=== PATIENT | male | born 1960 | race Caucasian/White ===

== ENCOUNTER 2017-10-19 21:46 | Emergency (ER) | payer BC ==
[2017-10-19 23:28] LABS: HEMATOCRIT 43.7 % (42.0-54.0); HEMOGLOBIN 15.1 g/dL (13.5-17.5); MCH 29.3 pg (26.0-34.0); MCHC 34.6 g/dL (31.0-37.0); MCV 84.7 fL (80.0-100.0); NEUTROPHILS 82.6 % (40-80); PLATELET COUNT 221 10x3/uL (130-400); RBC 5.16 10x6/uL (4.20-6.10); RDW 12.4 % (11.5-14.5); WBC 15.7 10x3/uL (4.8-10.8)
[2017-10-19 23:37] LABS: APPEARANCE CLEAR (CLEAR); BILIRUBIN NEGATIVE (NEGATIVE); COLOR YELLOW (YELLOW); GLUCOSE NEGATIVE (NEGATIVE); KETONE MODERATE mg/dL (NEGATIVE); NITRITE NEGATIVE (NEGATIVE); PROTEIN TRACE mg/dL (NEGATIVE); SPECIFIC GRAVITY 1.005 (1.005-1.020); UROBILINOGEN NORMAL (NORMAL)
[2017-10-19 23:39] LABS: BACTERIA FEW /hpf (NONE SEEN); EPITHELIAL CELLS 0-5 /hpf (0-5); WHITE CELLS - URINE 0-5 /hpf (0-5)
[2017-10-19 23:48] LABS: ALBUMIN 4.3 g/dL (3.4-5.0); BILIRUBIN - TOTAL 0.6 mg/dL (0.2-1.3); CALCIUM 9.5 mg/dL (8.5-10.1); CARBON DIOXIDE 22.7 mmol/L (21.0-32.0); CREATININE - SERUM 1.5 mg/dL (0.6-1.3); POTASSIUM - SERUM 3.7 mmol/L (3.5-5.1); PROTEIN - SERUM 8.4 g/dL (6.4-8.2)
[2017-12-15] MEDS ORDERED: PROSCAR5 MG PO (08:52)
[2017-12-16 06:17] VITALS: BMI 27.7
== END 2017-10-20 01:47 | disposition home or self-care (01) ==
LOC: D.ER 21:46
PROVIDERS: Family Medicine; Nurse Practitioner Family
DX: N20.1 Calculus of ureter (principal)

== ENCOUNTER → 2017-12-01 11:20 | Outpatient (CLI) | payer BC ==
[~2017-12-01 11:20] MED LIST: FLOMAX0.4 MG PO; HYDROCODON-ACE1 EAC7 PO; LASIX20 MG PO; PROSCAR5 MG PO
[2017-12-16 06:17] VITALS: BMI 27.7
== END | disposition home or self-care (01) ==
LOC: D.LAB 11:20
DX: Z12.5 Encounter for screening for malignant neoplasm of prostate (principal)

== ENCOUNTER 2017-12-16 06:00 | Day surgery (SDC) | payer BC ==
[~2017-12-16] VITALS: Ht 177.8 cm; Wt 87.5 kg
[~2017-12-16 06:00] MED LIST changes: -FLOMAX0.4 MG PO; -HYDROCODON-ACE1 EAC7 PO; -LASIX20 MG PO
[2017-12-16 06:17] VITALS: BP 189/104; Ht 177.8 cm; Wt 87.5 kg
[2017-12-16] MEDS ORDERED: HYDROCODON-ACE1 EAC7 PO (09:33)
[2017-12-16] MEDS ORDERED: LASIX20 MG PO (09:34)
[2017-12-16] MEDS ORDERED: FLOMAX0.4 MG PO (09:34)
== END 2017-12-16 15:50 | disposition home or self-care (01) ==
LOC: D.OPS 06:00 → D.PAN 08:00 → D.OPS 08:00
DX: K40.20 Bilateral inguinal hernia, without obstruction or gangrene, not specified as recurrent (principal); Z01.812 Encounter for preprocedural laboratory examination

== ENCOUNTER → 2018-03-11 11:00 | Outpatient (CLI) | payer BC ==
[2017-12-16 06:17] VITALS: BMI 27.7
[~2018-03-11 11:00] MED LIST changes: +FLOMAX0.4 MG PO; +HYDROCODON-ACE1 EAC7 PO; +IBUPROFEN200 MG PO; +IBUPROFEN800 MG PO; +LASIX20 MG PO; +TYLENOL W/CODEI1 TAB PO
== END | disposition home or self-care (01) ==
LOC: D.US 11:00
DX: N50.812 Left testicular pain (principal)

== ENCOUNTER 2018-03-30 05:30 | Day surgery (SDC) | payer BC ==
[2018-03-29 16:02] LABS: HEMOGLOBIN 14.4 g/dL (13.5-17.5); MCH 29.9 pg (26.0-34.0); MCHC 34.3 g/dL (31.0-37.0); MCV 87.1 fL (80.0-100.0); MEAN PLATELET VOLUME 10.6 fL (7.4-10.4); RBC 4.82 10x6/uL (4.20-6.10); RDW 12.8 % (11.5-14.5); WBC 6.8 10x3/uL (4.8-10.8)
[2018-03-29 16:18] LABS: CALC OSMOLALITY 286 mosm/kg (275-300); CALCIUM 8.3 mg/dL (8.5-10.1); CARBON DIOXIDE 26.1 mmol/L (21.0-32.0); CHLORIDE - SERUM 107 mmol/L (98-107); GLUCOSE 108 mg/dL (74-106); POTASSIUM - SERUM 3.8 mmol/L (3.5-5.1); SODIUM 143 mmol/L (136-145); UREA NITROGEN 15 mg/dL (7-18); eGFR NON AFRICAN AMERICAN 81 mL/min (90-120)
[~2018-03-30] VITALS: Ht 177.8 cm; Wt 84.8 kg
--- NOTE | ~2018-03-30 | OP ---
PATIENT NAME: AURORA CASEY MEDICAL RECORD: [id number] :56 LOCATION:[facility] ADMISSION DATE: SURGEON: MARCEL WINKLER MD DATE OF OPERATION: 03/30/2018 SURGEON: Marcel Winkler MD ANESTHESIA: General anesthesia by Diane Barahona CRNA DIAGNOSIS: Left hydrocele. PROCEDURE: Left hydrocelectomy - Jaboulay procedure. SPECIMENS: Left appendix testis and appendix epididymis. FINDINGS: Left hydrocele. BLOOD LOSS: None. CLINICAL HISTORY: This is a 57-year-old male, who developed left scrotal swelling after bilateral inguinal hernia repairs. Ultrasound of the scrotum reveals that this is a hydrocele. It has grown to a sufficient size that it is bothering him. He wishes to have it removed. There is also a small right hydrocele which is not large enough to warrant drainage. The patient is aware of the risk of surgery including infection and hematoma formation. He is not allergic to any medications. He was given Ancef IV amortization clerk to the OR. DESCRIPTION OF PROCEDURE: The patient was given induction of general anesthesia in supine position. He was then shaved, prepped and draped. In the median rhaphe of the scrotum, a 4 cm long incision was made. We then went through the dartos fascia with Bovie. We could see the tunica vaginalis. Hemostats were placed on either side of the midline of the tunica vaginalis and then Metzenbaum scissors were used to open up the tunica vaginalis and allow drainage of the hydrocele fluid. The Yankauer suction tip was placed into the hydrocele cavity to drain the fluid out. At least 10 mL of fluid was drained out. The incision was then lengthened using Metzenbaum scissors. The testicle was extruded through the incision out of the hemiscrotum. The patient has visible appendix epididymis and appendix testis. They are normal, but they can twist on their blood supply and create pain. Therefore, these were excised at their bases and sent to pathology for identification. The Jaboulay procedure consists of reapproximating the tunica vaginalis posterior to the epididymis and cord. The reapproximation of the 2 flaps on either side was performed using simple interrupted 3-0 Vicryl. The testicle was then placed back into the left hemiscrotum. I made sure that the lateral sulcus was indeed facing laterally. The dartos fascia was then reapproximated using simple interrupted 3-0 Vicryl. The skin was then reapproximated using simple interrupted 4-0 Vicryl. The incision line was infiltrated with 0.25% Marcaine containing epinephrine. Fluffs and mesh panties were given to the patient for a dressing. The patient will be going home today. I will see him in followup next week to check on his wound healing. TRANSINT:[id number] Voice Confirmation ID: [id number] DOCUMENT ID: [id number] OPERATIVE REPORT [id number] AURORA CASEY ROBERT S MD at 0953 CC: [id number] DICTATION DATE: 03/30/18818 OIL RECOVERY UNIT OPERATOR: 03/30/1835 [facility] [address] [place] [address]
[~2018-03-30 05:30] MED LIST changes: -IBUPROFEN200 MG PO; -TYLENOL W/CODEI1 TAB PO
[2018-03-30] MEDS ORDERED: IBUPROFEN200 MG PO (06:08)
[2018-03-30 06:26] VITALS: BP 182/104; Ht 177.8 cm; Wt 84.8 kg
[2018-03-30] MEDS ORDERED: TYLENOL W/CODEI1 TAB PO (08:11)
== END 2018-03-30 12:26 | disposition home or self-care (01) ==
LOC: D.OPS 05:30 → D.PAN 07:30 → D.OPS 12:26
PROVIDERS: Anesthesiology
DX: N43.3 Hydrocele, unspecified (principal); Q55.29 Other congenital malformations of testis and scrotum; Q55.4 Other congenital malformations of vas deferens, epididymis, seminal vesicles and prostate; Z01.812 Encounter for preprocedural laboratory examination

== ENCOUNTER → 2018-05-07 13:31 | Outpatient (CLI) | payer BC ==
[2018-03-30 06:26] VITALS: BMI 26.8
[~2018-05-07 13:31] MED LIST changes: +IBUPROFEN200 MG PO; +TYLENOL W/CODEI1 TAB PO
== END | disposition home or self-care (01) ==
LOC: D.RAD 13:31
DX: N20.0 Calculus of kidney (principal)

== ENCOUNTER → 2018-05-12 14:30 | Outpatient (CLI) | payer BC ==
[2018-03-30 06:26] VITALS: BMI 26.8
== END | disposition home or self-care (01) ==
LOC: D.CT 14:30
DX: R10.9 Unspecified abdominal pain (principal)

== ENCOUNTER 2018-09-09 10:01 | Day surgery (SDC) | payer BC ==
[~2018-09-09] VITALS: Ht 177.8 cm; Wt 83.9 kg
[~2018-09-09 10:01] MED LIST changes: +LISINOPRIL10 MG PO
[2018-09-09 14:45] VITALS: BP 146/85; Ht 177.8 cm; Wt 83.9 kg
--- NOTE | 2018-09-09 18:35 | NUR ---
PATIENT COMPLAINS OF URINARY FREQUENCY, KEEPS GOING INTO BATHROOM, PATIENT STATES IS PASSING CLOTS FOLLOWED BY PINK AND RED URINE AND REPORTS PASSING LARGE AMOUNTS OF URINE. DISCHARGE INSTRUCTIONS REVIEWED WITH PATIENT, LEFT HAND PIV DC'D WITH TIP INTACT
--- NOTE | 2018-09-10 09:02 | OP ---
PATIENT NAME: AURORA CASEY MEDICAL RECORD: [id number] :56 LOCATION:[facility] ADMISSION DATE: SURGEON: FRANCISCO WINKLER MD DATE OF OPERATION: 09/09/2018 SURGEON: Francisco Winkler MD ANESTHESIA: TIVA by Reji [place] CRNA DIAGNOSIS: Obstructive benign prostatic hyperplasia, not responsive to finasteride since 10/30/2017. CLINICAL HISTORY: The patient is unable to tolerate tamsulosin. He is not in urinary retention. PSA was 1.64 on 11/29/2017. DIOGENES gives a 40 mL prostate size, which is benign feeling. IPSS is 19 and quality of life score is 4 with the patient on finasteride. PROCEDURE: UroLift times 4 implants. FINDINGS: Lateral lobe enlargement primarily near the bladder neck. No median lobe. Single ureteral orifices bilaterally without any bladder tumors. ESTIMATED BLOOD LOSS: None. CLINICAL HISTORY: This is a 57-year-old male, who has had significant voiding symptoms for some time. He had a CT scan of the abdomen and pelvis on 05/12/2018, which showed an enlarged prostate. He was started on finasteride in October 2017, which somewhat improved his flow, but he still has nocturia every 4 hours and daytime frequency every 2 to 3 hours. His IPSS score with finasteride on board is 19 and his quality of life score is 4. He tried Flomax earlier and he could not tolerate it. He wishes to have the UroLift procedure done. He is not allergic to any medications. He was given Ancef investor relations director to the OR. DESCRIPTION OF PROCEDURE: The patient was given IV sedation. He was then placed into dorsal lithotomy position. The UroLift scope was introduced, with the findings as outlined above. A 1.5 cm distal to the bladder neck in the anterior lateral urethra, we placed 1 implant on each side. At the verumontanum, we also placed one implant on each side in the anterior lateral urethra. He then had a good open urethral channel all the way through. The bladder was emptied through the cystoscope sheath and then the scope was removed entirely. I will see the patient in followup in 1 month's time. TRANSINT:[id number] Voice Confirmation ID: [id number] DOCUMENT ID: [id number] FRANCISCO WINKLER MD at 0902 CC: [id number] DICTATION DATE: 09/09/18 1604 FINAL FINISHER FORGING DIES: 09/09/182032 [facility] 09/09/18 [facility] [address] [place] [id number]
== END 2018-09-09 18:45 | disposition home or self-care (01) ==
LOC: D.OPS 10:01 → D.PAN 13:30 → D.OPS 13:30 → D.PAN 16:00 → D.OPS 16:00
PROVIDERS: ATTEND Urology
DX: N40.1 Benign prostatic hyperplasia with lower urinary tract symptoms (principal); N13.8 Other obstructive and reflux uropathy; Z01.812 Encounter for preprocedural laboratory examination

== ENCOUNTER 2018-09-10 01:07 | Emergency (ER) | payer BC ==
[~2018-09-10] VITALS: Ht 177.8 cm; Wt 97.7 kg
[2018-09-10 01:41] VITALS: Ht 177.8 cm; Wt 97.7 kg
[2018-09-10 02:31] VITALS: BP 180/99
== END 2018-09-10 02:37 | disposition home or self-care (01) ==
LOC: D.ER 01:07
DX: R33.8 Other retention of urine (principal)